=== PATIENT | male | born 1980 | race Two or more races ===

== ENCOUNTER 2024-04-21 01:45 | Emergency (ER) | payer MEDICAID, SELFPAY ==
[2024-04-21 01:50] VITALS: BP 144/75; PULSE 67; RESP 19; TEMP 36.8; O2SAT 97
--- NOTE | 2024-04-21 02:01 | XR_ITS ---
Examination: CT abdomen and pelvis without contrast. Coronal 3-D reconstructions. Sagittal 2-D reconstructions. Date and time of exam:April 21, 2024 at 0220 hrs. Indications: Right upper abdominal pain beginning 2 months ago CTDI: vol (mGy): 5.24 DLP: (mGycm): 308 Technique: Axial images of the abdomen have been obtained, 3 mm slice thickness Intravenous contrast material has not been administered. Low dose protocols were performed. One or more of the following dose reduction techniques were used; automated exposure control, adjustment of the mA and/or KV according to patient size, use of iterative reconstruction technique. Findings: No focal liver or splenic lesions No gallstones No pancreatic or adrenal mass Aorta normal size No renal or ureteral calculi, no hydronephrosis Moderate stool throughout the colon Normal appendix No bowel obstruction No diverticulitis No prostatomegaly Urinary bladder intact Impression: No acute process in the abdomen or pelvis
--- NOTE | 2024-04-21 02:02 | PD.EDRME ---
Rapid Medical Screening Exam RME Arrival date/time: 04/21/24 01:45 43-year-old male no significant past medical history presents emergency department complaining of intermittent right upper quadrant abdominal pain with nausea that is been ongoing for several months. Chief Complaint: Abdominal Pain Time Seen by Provider: 04/21/24 01:47 Vital signs: Vital Signs Temperature 98.2 F 04/21/24 01:50 Pulse Rate 67 04/21/24 01:50 Respiratory Rate 19 04/21/24 01:50 Blood Pressure 144/75 H 04/21/24 01:50 Pulse Oximetry (%) 97 04/21/24 01:50 Oxygen Delivery Method Room Air 04/21/24 01:50 Vital signs reviewed by provider: Yes
[2024-04-21] MEDS: ONDANSETRON ODT 4 MG TABRAP PO (02:14)
[2024-04-21] MEDS: KETOROLAC INJ 60 MG/2 ML VIAL 30 MG IM (02:14)
[2024-04-21 02:26] LABS: Basophils % (Auto) 1 % (0-2.5); Eosinophils # (Auto) 0.2 Thou/mm3 (0.0-0.5); Eosinophils % (Auto) 3 % (0-10); Hematocrit 27.5 % (41.0-53.0); Immature Granulocytes % (Auto) 0 % (0-0); Immature Granulocytes Auto 0.01 Thou/mm3 (0.00-0.00); Lymphocytes # (Auto) 1.4 Thou/mm3 (1.0-4.8); Lymphocytes % (Auto) 23 % (10-50); Mean Corpuscular HGB Conc 30.2 g/dl (31.0-37.0); Mean Corpuscular Hemoglobin 20.3 pg (25.0-35.0); Mean Corpuscular Volume 67 fL (80-100); Monocytes # (Auto) 0.6 Thou/mm3 (0.0-0.8); Monocytes % (Auto) 10 % (0-12); Neutrophils # (Auto) 3.8 Thou/mm3 (1.8-7.7); Neutrophils % (Auto) 63 % (37-80); Nucleated Red Blood Cell % 0 /100 WBC (0); Platelet Count 267 Thou/mm3 (140-440); RDW Standard Deviation 42.4 fL (35.1-43.9); Red Blood Count 4.09 Miln/mm3 (4.50-5.90); White Blood Count 6.1 Thou/mm3 (3.8-10.6)
[2024-04-21 02:34] LABS: Collection Type, Urine Clean Catch; Squamous Epithelial Cell,Urine 0 /hpf (0-5)
[2024-04-21 02:44] LABS: Hemoglobin 8.3 g/dL (13.5-16.0)
[2024-04-21 02:52] LABS: Bacteria,Urine Rare; Bilirubin,Urine Negative (Negative); Blood,Urine Negative (Negative); Clarity,Urine Clear (Clear/Hazy); Color,Urine Lt-Yellow (Lt Yel-Yel); Culture Indicated,Urine Not Indicated; Glucose, Urine Negative (Negative); Ketones,Urine Negative (Negative); Leukocyte Esterase,Urine Negative (Negative); Nitrite,Urine Negative (Negative); Protein,Urine Negative (Neg - Trace); RBC,Urine 2 /hpf (0-3); Specific Gravity,Urine 1.027 (1.001-1.035); Urobilinogen,Urine Negative mg/dL (0.0-1.0); WBC,Urine < 1 /hpf (0-5)
--- NOTE | 2024-04-21 03:07 | PRELIM_ITS ---
CT scan of the abdomen and pelvis without intravenous contrast (axial sections with sagittal and coronal reformats) April 21, 2024 0220 hours Clinical History: Right upper quadrant pain Comparison: None. Findings: The lung bases are clear. The liver, gallbladder, pancreas, spleen, kidneys and adrenals are unremarkable on this noncontrast study. No evidence of bowel obstruction. The appendix is within normal limits. There is no mesenteric or retroperitoneal adenopathy. The urinary bladder is unremarkable. There is no free fluid or free air. The osseous structures are unremarkable. Fecal loading throughout the colon. Impression: Fecal loading. Report Electronically Signed By: Garth Pimentel 04/21/2024 3:06:19 AM [EST]
[2024-04-21 03:08] LABS: Amphetamine/Methamp Scrn,U Negative (Negative); Barbiturate Screen,Urine Negative (Negative); Benzodiazepines Screen,Urine Negative (Negative); Benzoylecgonine Screen, Ur Negative (Negative); Fentanyl Screen,Urine Negative (Negative); Opiate Screen,Urine Negative (Negative); THC Screen,Urine Negative (Negative)
[2024-04-21 03:12] LABS: Alanine Aminotransferase 13 U/L (10-49); Albumin, Serum 4.6 gm/dL (3.5-5.0); Albumin/Globulin Ratio 2.1 (1.2-2.2); Alkaline Phosphatase 69 U/L (46-116); Anion Gap 8 (7-16); Aspartate Amino Transferase 17 U/L (0-34); BUN/Creatinine Ratio 12 Ratio (12-20); Bilirubin,Total 0.5 mg/dL (0.3-1.2); Blood Urea Nitrogen 12 mg/dL (9-23); Calcium 9.4 mg/dL (8.3-10.6); Calcium (Corrected) 9.4 mg/dL (8.5-10.1); Carbon Dioxide 25.1 mMol/L (20.0-31.0); Chloride 107 mMol/L (98-107); Globulin 2.2 gm/dL (2.3-3.5); Glucose 97 mg/dL (74-106); Lipase 37 U/L (12-53); Osmolality,Calculated 279 (275-295); Potassium 4.4 mMol/L (3.4-5.1); Sodium 140 mMol/L (136-145); Total Protein 6.8 gm/dL (5.7-8.2); eGFR > 60 See Note
--- NOTE | 2024-04-21 03:23 | EDNOTE_ITS ---
ED Abdominal Pain RME/HPI General Chief Complaint: Abdominal Pain Stated complaint: ABD PAIN Time seen by provider: 04/21/24 01:47 Arrival date/time: 04/21/24 01:45 43-year-old male no significant past medical history presents emergency department complaining of intermittent right upper quadrant abdominal pain with nausea that is been ongoing for several months. Patient denies any fever, chills, vomiting blood, diarrhea, flank pain, or any other associated symptom. Source: patient Mode of arrival: ambulatory Limitations: no limitations RME / HPI RME / HPI narrative: 04/21/24 01:45 43-year-old male no significant past medical history presents emergency department complaining of intermittent right upper quadrant abdominal pain with nausea that is been ongoing for several months. Related Data Previous Rx's ?Medication ?Instructions ?Recorded docusate sodium 100 mg capsule 100 mg PO BID 3 days #6 caps 04/21/24 Allergies Allergy/AdvReac Type Severity Reaction Status Date / Time Penicillins Allergy Unknown UNKNOWN Verified 04/21/24 01:47 Review of Systems Review of Systems Systems Reviewed: All systems reviewed, normal except as documented Constitutional Constitutional: Reports system reviewed and no additional complaints, except as documented, Denies body ache(s), Denies chills and Denies fever(s) Eyes Eyes: Reports system reviewed and no additional complaints, except as documented and Denies change in vision ENT Ears, Nose, Mouth, and Throat: Reports system reviewed and no additional complaints, except as documented, Denies disequilibrium, Denies dizziness, Denies sore throat and Denies vertigo Cardiovascular Cardiovascular: Reports system reviewed and no additional complaints, except as documented, Denies chest pain and Denies dyspnea Respiratory Respiratory: Reports system reviewed and no additional complaints, except as documented, Denies chest congestion, Denies cough and Denies dyspnea Gastrointestinal Gastrointestinal: Reports system reviewed and no additional complaints, except as documented, Reports abdominal pain, Reports nausea and Denies vomiting Musculoskeletal Musculoskeletal: Reports system reviewed and no additional complaints, except as documented, Denies abnormal gait and Denies arthralgias Integumentary/Breasts Skin/Breast: Reports system reviewed and no additional complaints, except as documented, Denies erythema, Denies rash and Denies wounds Neurologic Neurologic: Reports system reviewed and no additional complaints, except as documented, Denies abnormal gait, Denies disequilibrium, Denies dizziness and Denies vertigo Past Medical History Social History SMOKING STATUS: Never smoker ED Exam General Limitations: Present no limitations General appearance: Present alert and in no apparent distress Head Head exam: Present atraumatic Eye Eye exam: Present normal appearance, PERRL and EOMI ENT ENT exam: Present normal exam, normal oropharynx and mucous membranes moist Neck Neck exam: Present normal inspection, full ROM and trachea midline Chest Chest inspection: Present normal inspection and symmetric chest wall rise Respiratory Respiratory exam: Present normal lung sounds bilaterally Cardiovascular Cardiovascular exam: Present regular rate, normal rhythm and normal heart sounds Abdominal Exam Abdominal exam: Present soft and normal bowel sounds Extremities Exam Extremities exam: Present normal inspection and full ROM Back Exam Back exam: Present normal inspection and full ROM Neurological Exam Neurological exam: Present alert, oriented X3 and CN II-XII intact Psychiatric Psychiatric exam: Present normal affect and normal mood Skin Skin exam: Present warm, dry, intact and normal color Course Quality Measures none Orders Category Date Time Status CT abdomen pelvis wo con Stat Exams 04/21/24 02:01 Taken CBC Stat Lab 04/21/24 02:08 Completed CMP [Comprehensive Metabolic Panel] Stat Lab 04/21/24 02:08 Completed Drug Screen,Urine Stat Lab 04/21/24 02:27 Completed Lipase Stat Lab 04/21/24 02:08 Completed Urinalysis, C/S if Indicated Stat Lab 04/21/24 02:27 Completed Ketorolac Inj [Toradol Inj] Med 04/21/24 02:02 Discontinued 30 mg IM X1 ONE Ondansetron Odt [Zofran Odt] Med 04/21/24 02:02 Discontinued 4 mg PO X1 ONE Vital Signs Vital signs: Vital Signs Temperature 98.2 F 04/21/24 01:50 Pulse Rate 67 04/21/24 01:50 Respiratory Rate 19 04/21/24 01:50 Blood Pressure 144/75 H 04/21/24 01:50 Pulse Oximetry (%) 97 04/21/24 01:50 Oxygen Delivery Method Room Air 04/21/24 01:50 97% room air within normal limits Abdominal Pain MDM MDM Narrative MDM Narrative:: 43-year-old male no significant past medical history presents emergency department complaining of intermittent right upper quadrant abdominal pain with nausea that is been ongoing for several months. Patient denies any fever, chil ls, vomiting blood, diarrhea, flank pain, or any other associated symptom. CBC was unremarkable for any leukocytosis. Hemoglobin 8.3. CMP was unremarkable for any elevated LFTs or gross electrolyte abnormalities. Normal lipase. Urinalysis was unremarkable for any signs of infection. CT abdomen pelvis without was unremarkable other than fecal loading. Patient stable for discharge. Patient data External records reviewed:: None Clinical information provided by:: patient Social determinants that could affect healthcare access:: none Patient has the following chronic illnesses:: None How is presenting disease/condition affected by chronic disease/condition?: no chronic disease Evaluation data The following diagnostics were reviewed and interpreted by me:: lab results and radiology exam(s) Lab and/or radiology exams considered but not ordered:: Ordered Interpretation Summary: Interpreted by me Medications / Prescriptions Medications or Prescriptions considered but not ordered:: Ordered Medication administrations:: Medication Administration History Discontinued Medications Ketorolac Tromethamine (Ketorolac Inj 60 Mg/2 Ml Vial) 30 mg IM X1 ONE Stop: 04/21/24 02:03 Last Admin: 04/21/24 02:14 Dose: 30 mg Documented By: LUIS CARLOS Ondansetron HCl (Ondansetron Odt 4 Mg Tabrap) 4 mg PO X1 ONE; Protocol Stop: 04/21/24 02:03 Last Admin: 04/21/24 02:14 Dose: 4 mg Documented By: LUIS CARLOS Given Consultations Consultation(s) initiated? (list below): No Diagnosis Differential diagnosis abdominal pain: abdominal pain, acute appendicitis, calculus of kidney, constipation, diverticulitis, gastroenteritis, pancreatitis and small bowel obstruction Most likely diagnosis given after review of the tests above:: Abdominal pain Admission Indicated Admission indicated?: not indicated Admission Request Was there a request for admission?: No Disposition Plan Disposition Plan: Discharge Discharge Attestation Discharge Attestation: The patient and all family members were given an opportunity to ask questions and understood the discharge instructions. Discharge instructions specifically effects, indications for sooner follow up or return to the emergency department, and the expected course of current diagnosis. Patient condition: Stable Discharge Plan Plan Patient Disposition: HOME (Self Care) Disposition Comment: Stable Prescriptions/Referrals Prescriptions/Med Rec: New docusate sodium 100 mg capsule 100 mg PO BID 3 Days Qty: 6 0RF Referrals: No Primary/Family,Physician [Primary Care Provider] - In 1 week Problem List Clinical Impression: Abdominal pain Patient/Caregiver Discharge Instructions Discharge Activity: activity as tolerated Education Materials: Abdominal Pain Additional Instructions: Drink plenty of fluids and eat plenty of fiber. Follow-up with primary care provider in 2 to 3 days and request H. pylori testing or referral to GI specialist if symptoms persist. Return to emergency department for any worsening symptoms or as needed. Print Language: Thai Stand Alone Forms: Amanda Award Info., Patient Portal Info Letter PA/ARLEN Supervising Physician PA/[employer] Supervising Physician: Dr. Espinosa
== END 2024-04-21 03:33 | disposition home or self-care (01) ==
PROVIDERS: Emergency Provider Emergency Medicine
DX: R10.11 Right upper quadrant pain (principal)
CPT/HCPCS: 36415; 74176; 80053; 80307; 81001; 83690; 85025; 96372; 99284; J1885; Q0162

== ENCOUNTER 2024-04-21 18:05 | Emergency (ER) | payer MEDICAID, SELFPAY ==
[2024-04-21 18:06] VITALS: BMI 21.5
[2024-04-21 18:35] VITALS: BP 124/64; PULSE 88; RESP 18; TEMP 36.9; O2SAT 99
--- NOTE | 2024-04-21 18:46 | XR_ITS ---
Examination: Testicular sonography complete Technique: Grayscale sonographic images testes with color flow analysis Exam date and time: April 21, 20248 hrs. Indications: Onset right testicular pain today. Findings: Right testis 3.9 cm Epididymis 1.1 cm 4 mm right epididymal cyst No testicular torsion or testicular mass, arterial flow testicle Minimal hydrocele Left testis 3.9 cm Epididymis 1.5 cm Arterial flow testicle Moderate varicocele No testicular mass Minimal hydrocele Impression: No testicular torsion or testicular mass Moderate left varicocele
--- NOTE | 2024-04-21 18:47 | PD.EDRME ---
Rapid Medical Screening Exam RME Arrival date/time: 04/21/24 18:05 43-year-old male no significant past medical history presents emergency department complaining of right testicular pain with nausea that started earlier today. Chief Complaint: Nausea/Vomiting/Diarrhea Time Seen by Provider: 04/21/24 18:12 Vital signs: Vital Signs Temperature 98.5 F 04/21/24 18:35 Pulse Rate 88 04/21/24 18:35 Respiratory Rate 18 04/21/24 18:35 Blood Pressure 124/64 04/21/24 18:35 Pulse Oximetry (%) 99 04/21/24 18:35 Oxygen Delivery Method Room Air 04/21/24 18:35 Vital signs reviewed by provider: Yes
[2024-04-21] MEDS: ONDANSETRON ODT 4 MG TABRAP PO (19:04)
[2024-04-21 19:13] LABS: Collection Type, Urine Clean Catch; Squamous Epithelial Cell,Urine 0 /hpf (0-5)
[2024-04-21] MEDS: ACETAMINOPHEN 500 MG TABLET 1000 MG PO (19:16)
[2024-04-21 19:20] LABS: Bilirubin,Urine Negative (Negative); Blood,Urine Negative (Negative); Clarity,Urine Clear (Clear/Hazy); Color,Urine Lt-Yellow (Lt Yel-Yel); Culture Indicated,Urine Not Indicated; Glucose, Urine Negative (Negative); Ketones,Urine Negative (Negative); Leukocyte Esterase,Urine Negative (Negative); Nitrite,Urine Negative (Negative); Protein,Urine Negative (Neg - Trace); RBC,Urine 1 /hpf (0-3); Specific Gravity,Urine 1.024 (1.001-1.035); Urobilinogen,Urine Negative mg/dL (0.0-1.0); WBC,Urine < 1 /hpf (0-5)
--- NOTE | 2024-04-21 21:40 | EDNOTE_ITS ---
ED Abdominal Pain RME/HPI General Chief Complaint: Nausea/Vomiting/Diarrhea Stated complaint: R UPPER ABD PAIN X1 HOUR; NAUSEOUS Time seen by provider: 04/21/24 18:12 Arrival date/time: 04/21/24 18:05 43-year-old male no significant past medical history presents emergency department complaining of right testicular pain with nausea that started earlier today. Patient denies any fever, chills, vomiting, dysuria, or any other associated symptom. Patient was seen yesterday had blood work and CT scan and was discharged. Source: patient Mode of arrival: ambulatory Limitations: no limitations RME / HPI RME / HPI narrative: 04/21/24 18:05 43-year-old male no significant past medical history presents emergency department complaining of right testicular pain with nausea that started earlier today. Related Data Previous Rx's ?Medication ?Instructions ?Recorded acetaminophen 500 mg capsule 500 mg PO Q6H PRN pain #3 0 caps 04/21/24 docusate sodium 100 mg capsule 100 mg PO BID 3 days #6 caps 04/21/24 ibuprofen 600 mg tablet 600 mg PO Q8H PRN pain #20 t abs 04/21/24 Allergies Allergy/AdvReac Type Severity Reaction Status Date / Time Penicillins Allergy Unknown UNKNOWN Verified 04/21/24 18:08 Review of Systems Review of Systems Systems Reviewed: All systems reviewed, normal except as documented Constitutional Constitutional: Reports system reviewed and no additional complaints, except as documented, Denies body ache(s), Denies chills and Denies fever(s) Eyes Eyes: Reports system reviewed and no additional complaints, except as documented and Denies change in vision ENT Ears, Nose, Mouth, and Throat: Reports system reviewed and no additional complaints, except as documented, Denies disequilibrium, Denies dizziness, Denies sore throat and Denies vertigo Cardiovascular Cardiovascular: Reports system reviewed and no additional complaints, except as documented, Denies chest pain and Denies dyspnea Respiratory Respiratory: Reports system reviewed and no additional complaints, except as documented, Denies chest congestion, Denies cough and Denies dyspnea Gastrointestinal Gastrointestinal: Reports system reviewed and no additional complaints, except as documented, Denies abdominal pain, Denies nausea and Denies vomiting Genitourinary Genitourinary: Reports testicular pain Musculoskeletal Musculoskeletal: Reports system reviewed and no additional complaints, except as documented, Denies abnormal gait and Denies arthralgias Integumentary/Breasts Skin/Breast: Reports system reviewed and no additional complaints, except as documented, Denies erythema, Denies rash and Denies wounds Neurologic Neurologic: Reports system reviewed and no additional complaints, except as documented, Denies abnormal gait, Denies disequilibrium, Denies dizziness and Denies vertigo Past Medical History Social History SMOKING STATUS: Never smoker ED Exam General Limitations: Present no limitations General appearance: Present alert and in no apparent distress Head Head exam: Present atraumatic Eye Eye exam: Present normal appearance, PERRL and EOMI ENT ENT exam: Present normal exam, normal oropharynx and mucous membranes moist Neck Neck exam: Present normal inspection, full ROM and trachea midline Chest Chest inspection: Present normal inspection and symmetric chest wall rise Respiratory Respiratory exam: Present normal lung sounds bilaterally Cardiovascular Cardiovascular exam: Present regular rate, normal rhythm and normal heart sounds Abdominal Exam Abdominal exam: Present soft and normal bowel sounds Expanded Exam exam: Absent penile swelling, lesions, erythema or ulcerations Scrotal exam: right: testicular tenderness Extremities Exam Extremities exam: Present normal inspection and full ROM Back Exam Back exam: Present normal inspection and full ROM Neurological Exam Neurological exam: Present alert, oriented X3 and CN II-XII intact Psychiatric Psychiatric exam: Present normal affect and normal mood Skin Skin exam: Present warm, dry, intact and normal color Course Quality Measures none Orders Category Date Time Status US testicular Stat Exams 04/21/24 18:46 Completed Urinalysis, C/S if Indicated Stat Lab 04/21/24 19:05 Completed Acetaminophen Tab [Tylenol ES Tab] Med 04/21/24 19:11 Discontinued 1,000 mg PO X1 ONE Ketorolac Inj [Toradol Inj] Med 04/21/24 18:46 Discontinued 30 mg IM X1 ONE Ondansetron Odt [Zofran Odt] Med 04/21/24 18:46 Discontinued 4 mg PO X1 ONE Vital Signs Vital signs: Vital Signs Temperature 98.5 F 04/21/24 18:35 Pulse Rate 88 04/21/24 18:35 Respiratory Rate 18 04/21/24 18:35 Blood Pressure 124/64 04/21/24 18:35 Pulse Oximetry (%) 99 04/21/24 18:35 Oxygen Delivery Method Room Air 04/21/24 18:35 Abdominal Pain MDM MDM Narrative MDM Narrative:: 43-year-old male no significant past medical history presents emergency department complaining of right testicular pain with nausea that started earlier today. Patient denies any fever, chills, vomiting, dysuria, or any other associated symptom. Patient was seen yesterday had blood work and CT scan and was discharged. Urinalysis was unremarkable. Testicular ultrasound findings left moderate varicocele. Testicular exam no obvious signs of infection lumps or masses. Patient stable for discharge. Patient data External records reviewed:: [facility] previous records Clinical information provided by:: patient Social determinants that could affect healthcare access:: none Patient has the following chronic illnesses:: None How is presenting disease/condition affected by chronic disease/condition?: no chronic disease Evaluation data The following diagnostics were reviewed and interpreted by me:: lab results and radiology exam(s) Lab and/or radiology exams considered but not ordered:: Ordered Interpretation Summary: Interpreted by me Medications / Prescriptions Medications or Prescriptions considered but not ordered:: Ordered Medication administrations:: Medication Administration History Discontinued Medications Acetaminophen (Acetaminophen 500 Mg Tablet) 1,000 mg PO X1 ONE Stop: 04/21/24 19:12 Last Admin: 04/21/24 19:16 Dose: 1,000 mg Documented By: LUIS CARLOS Ketorolac Tromethamine (Ketorolac Inj 60 Mg/2 Ml Vial) 30 mg IM X1 ONE Stop: 04/21/24 18:47 Last Admin: 04/21/24 19:09 Dose: Not Given Documented By: LUIS CARLOS Non-Admin Reason: Patient Refused Ondansetron HCl (Ondansetron Odt 4 Mg Tabrap) 4 mg PO X1 ONE; Protocol Stop: 04/21/24 18:47 Last Admin: 04/21/24 19:04 Dose: 4 mg Documented By: LUIS CARLOS Given Consultations Consultation(s) initiated? (list below): No Diagnosis Differential diagnosis abdominal pain: abdominal pain, acute appendicitis, calculus of kidney, constipation, diverticulitis, endometriosis, gastroente ritis, pancreatitis and small bowel obstruction Most likely diagnosis given after review of the tests above:: Left varicocele Admission Indicated Admission indicated?: not indicated Admission Request Was there a request for admission?: No Disposition Plan Disposition Plan: Discharge Discharge Attestation Discharge Attestation: The patient and all family members were given an opportunity to ask questions and understood the discharge instructions. Discharge instructions specifically effects, indications for sooner follow up or return to the emergency department, and the expected course of current diagnosis. Patient condition: Stable Discharge Plan Plan Patient Disposition: HOME (Self Care) Disposition Comment: Stable Prescriptions/Referrals Prescriptions/Med Rec: New ibuprofen 600 mg tablet 600 mg PO Q8H PRN (Reason: pain) Qty: 20 0RF acetaminophen 500 mg capsule 500 mg PO Q6H PRN (Reason: pain) Qty: 30 0RF No Action docusate sodium 100 mg capsule 100 mg PO BID 3 Days Qty: 6 0RF Referrals: No Primary/Family,Physician [Primary Care Provider] - In 1 week Problem List Clinical Impression: Left varicocele Patient/Caregiver Discharge Instructions Education Materials: Treating Varicocele, What Is a Varicocele, ED Varicocele Additional Instructions: Take Tylenol or ibuprofen as needed for pain. Follow-up with primary care provider in 2 to 3 days and request referral to urologist if symptoms persist. Return to emergency department for any worsening symptoms or as needed. Print Language: [place]ese Stand Alone Forms: Amanda Award Info., Patient Portal Info Letter FOREIGN/ARLEN Supervising Physician PA/ARLEN Supervising Physician: Dr. Espinosa
== END 2024-04-21 22:03 | disposition home or self-care (01) ==
PROVIDERS: Emergency Provider Emergency Medicine
DX: I86.1 Scrotal varices (principal)
CPT/HCPCS: 76870; 80307; 81001; 99284; J1885; Q0162; A9270

== ENCOUNTER 2024-05-15 08:04 | Emergency (ER) | payer MEDICAID, SELFPAY ==
[2024-05-15 08:12] VITALS: BP 120/76; PULSE 86; RESP 16; TEMP 36.7; O2SAT 100; BMI 23.6
--- NOTE | 2024-05-15 08:17 | XR_ITS ---
EXAMINATION: US scrotum HISTORY: Right lower quadrant and tubes. COMPARISON: 04/21/2024, scrotal ultrasound and CT abdomen pelvis. FINDINGS: Right testicle size: 5.1 x 2.1 x 3.2 cm. Right testicle parenchyma: Within normal limits. No mass. Right testicle location: Normally positioned within the scrotum. Right epididymis: Within normal limits. Other findings right: Similar to prior ultrasound, there is a small amount of hypoechoic fluid with internal echogenicities primarily around the inferior aspect of the testicle. No varicocele. Left testicle size: 5.1 x 1.9 x 2.8 cm. Left testicle parenchyma: Within normal limits. No mass. Left testicle location: Normally positioned within the scrotum. Left epididymis: Within normal limits. Other findings left: No hydrocele. Small varicocele again seen. Doppler: Arterial and venous color Doppler flow and spectral waveforms within both testes are within normal limits. IMPRESSION: 1. No sonographic findings for testicular torsion. 2. Similar, small complicated fluid collection about the inferior aspect of the right testicle. Differential includes hydrocele, pyocele, hematocele. 3. Similar small left varicocele.
--- NOTE | 2024-05-15 08:18 | EDRME_ITS ---
Rapid Medical Screening Exam [facility] Arrival date/time: 05/15/24 08:04 CC: Scrotal pain that radiates up into the left upper quadrant HPI ongoing for the past several months intermittent in nature worse in the last 12 hours denies nausea vomiting painful urination bloody urination headache shortness of breath difficulty breathing or fever. Chief Complaint: Abdominal Pain Vital signs: Vital Signs Temperature 98.1 F 05/15/24 08:12 Pulse Rate 86 05/15/24 08:12 Respiratory Rate 16 05/15/24 08:12 Blood Pressure 120/76 05/15/24 08:12 Pulse Oximetry (%) 100 05/15/24 08:12 Oxygen Delivery Method Room Air 05/15/24 08:12
[2024-05-15 08:50] LABS: Collection Type, Urine Clean Catch; Squamous Epithelial Cell,Urine 0 /hpf (0-5)
[2024-05-15 09:06] LABS: Basophils # (Auto) 0.1 Thou/mm3 (0.0-0.2); Basophils % (Auto) 1 % (0-2.5); Eosinophils # (Auto) 0.3 Thou/mm3 (0.0-0.5); Eosinophils % (Auto) 4 % (0-10); Hematocrit 30.2 % (41.0-53.0); Immature Granulocytes % (Auto) 0 % (0-0); Immature Granulocytes Auto 0.01 Thou/mm3 (0.00-0.00); Lymphocytes # (Auto) 1.7 Thou/mm3 (1.0-4.8); Lymphocytes % (Auto) 22 % (10-50); Mean Corpuscular HGB Conc 29.1 g/dl (31.0-37.0); Mean Corpuscular Hemoglobin 19.5 pg (25.0-35.0); Mean Corpuscular Volume 67 fL (80-100); Monocytes # (Auto) 0.7 Thou/mm3 (0.0-0.8); Monocytes % (Auto) 9 % (0-12); Neutrophils # (Auto) 4.8 Thou/mm3 (1.8-7.7); Neutrophils % (Auto) 64 % (37-80); Nucleated Red Blood Cell % 0 /100 WBC (0); Platelet Count 332 Thou/mm3 (140-440); RDW Standard Deviation 43.8 fL (35.1-43.9); Red Blood Count 4.52 Miln/mm3 (4.50-5.90); White Blood Count 7.5 Thou/mm3 (3.8-10.6)
[2024-05-15 09:07] LABS: Hemoglobin 8.8 g/dL (13.5-16.0)
[2024-05-15 09:08] LABS: Bilirubin,Urine Negative (Negative); Blood,Urine Negative (Negative); Clarity,Urine Clear (Clear/Hazy); Color,Urine Yellow (Lt Yel-Yel); Glucose, Urine Negative (Negative); Ketones,Urine Negative (Negative); Leukocyte Esterase,Urine Negative (Negative); Nitrite,Urine Negative (Negative); Protein,Urine Trace (Neg - Trace); RBC,Urine 5 /hpf (0-3); Specific Gravity,Urine 1.029 (1.001-1.035); Urobilinogen,Urine Negative mg/dL (0.0-1.0); WBC,Urine 1 /hpf (0-5)
[2024-05-15 09:10] LABS: Alanine Aminotransferase 16 U/L (10-49); Albumin, Serum 4.4 gm/dL (3.5-5.0); Albumin/Globulin Ratio 1.8 (1.2-2.2); Alkaline Phosphatase 77 U/L (46-116); Anion Gap 8 (7-16); Aspartate Amino Transferase 21 U/L (0-34); BUN/Creatinine Ratio 15 Ratio (12-20); Bilirubin,Total 0.5 mg/dL (0.3-1.2); Blood Urea Nitrogen 17 mg/dL (9-23); Calcium 9.6 mg/dL (8.3-10.6); Calcium (Corrected) 9.6 mg/dL (8.5-10.1); Carbon Dioxide 25.7 mMol/L (20.0-31.0); Chloride 110 mMol/L (98-107); Creatinine (Component) 1.1 mg/dL (0.6-1.3); Estimated Creatinine Clearance 88.4 mL/min (>60); Globulin 2.4 gm/dL (2.3-3.5); Glucose 73 mg/dL (74-106); Lipase 50 U/L (12-53); Osmolality,Calculated 287 (275-295); Potassium 3.8 mMol/L (3.4-5.1); Sodium 144 mMol/L (136-145); Total Protein 6.8 gm/dL (5.7-8.2); eGFR > 60 See Note
[2024-05-15 11:02] LABS: Path Review Blood Smear Sent to Pathologist
--- NOTE | 2024-05-15 11:35 | PD.EDABDPN ---
ED Abdominal Pain RME/HPI General Chief Complaint: Abdominal Pain Stated complaint: STOMACH PAINS Time seen by provider: 05/15/24 11:28 Arrival date/time: 05/15/24 08:04 RME / HPI RME / HPI narrative: 43-year-old male patient with no significant medical history, came in for evaluation regarding right sided abdominal pain. Onset of symptoms for several months as on and off right-sided abdominal pain, radiating to the right testicle. Described as dull ache severity mild. Patient denies any vomiting fever. Denies any dysuria frequency. Denies any swelling to the testicle. Denies any redness to the testicle. No medication has been prior to arrival. Related Data Previous Rx's ?Medication ?Instructions ?Recorded acetaminophen 500 mg capsule 500 mg PO Q6H PRN pain #30 caps 04/21/24 ibuprofen 600 mg tablet 600 mg PO Q8H PRN pain #20 tabs 04/21/24 ibuprofen 800 mg tablet 800 mg PO TID PRN pain #30 tabs 05/15/24 Allergies Allergy/AdvReac Type Severity Reaction Status Date / Time Penicillins Allergy Unknown UNKNOWN Verified 05/15/24 08:07 Review of Systems Review of Systems Narrative Review of Systems: Review of system reviewed and within normal limits except mentioned in HPI ED Exam Narrative Physical exam: VITAL SIGNS: Reviewed. GENERAL APPEARANCE: Alert and interactive, follows commands, no acute distress, HEAD AND FACE: Non-traumatic. ENT: PERRL, pink conjunctivitis, eyelid no trauma, Mucous membrane moist. NECK: Supple, nontender, no nuchal rigidity. CHEST: No tenderness, no crepitus, no paradoxical movement, no retractions. LUNGS: Clear, well ventilated, symmetric, no rales, no wheezing, no ronchi, no stridor, good breath sounds bilaterally. HEART: Regular rate, regular rhythm, no murmur, no gallops. ABDOMEN: Soft, positive bowel sounds, nondistended, no guarding, nontender, no rebound, no masses, RECTAL: Deferred. GENITAL: No testicular tenderness no swelling noted NEUROLOGICAL: Gross motor function intact sensory function intact, Appropriate for age. MUSCULOSKELETAL: low back nontender, full range of motion. EXTREMITIES: Nontender, full range of motion. SKIN: Color pink, dry, no rash, no lacerations, no abrasions, no contusions. LYMPHATICS: Deferred. Course Quality Measures none Orders Category Date Time Status US scrotum Stat Exams 05/15/24 08:17 Completed CBC Stat Lab 05/15/24 08:30 Completed CMP [Comprehensive Metabolic Panel] Stat Lab 05/15/24 08:30 Completed Lipase Stat Lab 05/15/24 08:30 [address]pleted Path Review Blood Smear Stat Lab 05/15/24 08:30 Completed Urinalysis Stat Lab 05/15/24 08:30 Completed Vital Signs Vital signs: Vital Signs Temperature 98.1 F 05/15/24 08:12 Pulse Rate 86 05/15/24 08:12 Respiratory Rate 16 05/15/24 08:12 Blood Pressure 120/76 05/15/24 08:12 Pulse Oximetry (%) 100 05/15/24 08:12 Oxygen Delivery Method Room Air 05/15/24 08:12 Abdominal Pain MDM MDM Narrative MDM Narrative:: 43-year-old male patient with no significant medical history, came in for evaluation regarding right sided abdominal pain. Onset of symptoms for several months as on and off right-sided abdominal pain, radiating to the right testicle. Described as dull ache severity mild. Patient denies any vomiting fever. Denies any dysuria frequency. Denies any swelling to the testicle. Denies any redness to the testicle. No medication has been prior to arrival. Patient's workup today all came back unremarkable. Ultrasound of the scrotum showed 1. No sonographic findings for testicular torsion. 2. Similar, small complicated fluid collection about the inferior aspect of the right testicle. Differential includes hydrocele, pyocele, hematocele. 3. Similar small left varicocele. Results discussed with the patient. Patient was advised to follow-up with PCP and for referral to urologist. Prior to discharge patient told me that his pain is totally gone. Patient data External records reviewed:: None Clinical information provided by:: patient Social determinants that could affect healthcare access:: none Patient has the following chronic illnesses:: None How is presenting disease/condition affected by chronic disease/condition?: no chronic disease Evaluation data The following diagnostics were reviewed and interpreted by me:: lab results and radiology exam(s) Lab and/or radiology exams considered but not ordered:: None Interpretation Summary: None Medications / Prescriptions Medications or Prescriptions considered but not ordered:: None Medication administrations:: None Consultations Consultation(s) initiated? (list below): No Diagnosis Differential diagnosis abdominal pain: abdominal pain and constipation Most likely diagnosis given after review of the tests above:: Testicular pain, hydrocele, abdominal pain Admission Indicated Admission indicated?: not indicated Admission Request Was there a request for admission?: No Disposition Plan Disposition Plan: Discharge Discharge Attestation Discharge Attestation: The patient was given an opportunity to ask questions and understood the discharge instructions. Discharge instructions specifically effects, indications for sooner follow up or return to the emergency department, and the expected course of current diagnosis. Patient condition: Stable Discharge Plan Plan Patient Disposition: HOME (Self Care) Disposition Comment: stable Prescriptions/Referrals Prescriptions/Med Rec: New ibuprofen 800 mg tablet 800 mg PO TID PRN (Reason: pain) Qty: 30 0RF No Action ibuprofen 600 mg tablet 600 mg PO Q8H PRN (Reason: pain) Qty: 20 0RF acetaminophen 500 mg capsule 500 mg PO Q6H PRN (Reason: pain) Qty: 30 0RF Referrals: Marquise Walker MD [Primary Care Provider] - In 1 week Problem List Clinical Impression: Right hydrocele, Abdominal pain Patient/Caregiver Discharge Instructions Discharge Activity: activity as tolerated Education Materials: ED Hydrocele, Type Not Specified Additional Instructions: Thank you for the opportunity for serving you today. You are stable for discharged . You are advised to: Follow-up with your PCP in 1 to 2 days as for referral to urologist Return to ED for worsening of symptoms Increase oral fluids Take medication as prescribed Print Language: Nicaraguan Stand Alone Forms: Amanda Award Info., Patient Portal Info Letter FOREIGN/ARLEN Supervising Physician AGUSTIN Supervising Physician: MD Ricardo
== END 2024-05-15 12:13 | disposition home or self-care (01) ==
PROVIDERS: Registered Nurse General Practice; Emergency Provider Emergency Medicine; PCP Family Medicine
DX: N43.3 Hydrocele, unspecified (principal)
CPT/HCPCS: 36415; 76870; 80053; 81001; 83690; 85025; 99284

== ENCOUNTER 2024-12-03 14:38 | Emergency (ER) | payer MEDICAID, SELFPAY ==
[2024-12-03 15:00] VITALS: BP 115/77; PULSE 69; RESP 18; TEMP 37.1; O2SAT 99
[2024-12-03 15:24] LABS: Basophils # (Auto) 0.0 Thou/mm3 (0.0-0.2); Basophils % (Auto) 1 % (0-2.5); Eosinophils # (Auto) 0.2 Thou/mm3 (0.0-0.5); Eosinophils % (Auto) 3 % (0-10); Hematocrit 36.0 % (41.0-53.0); Hemoglobin 11.3 g/dL (13.5-16.0); Immature Granulocytes Auto 0.01 Thou/mm3 (0.00-0.00); Lymphocytes # (Auto) 0.8 Thou/mm3 (1.0-4.8); Lymphocytes % (Auto) 14 % (10-50); Mean Corpuscular HGB Conc 31.4 g/dl (31.0-37.0); Mean Corpuscular Hemoglobin 23.8 pg (25.0-35.0); Mean Corpuscular Volume 76 fL (80-100); Monocytes # (Auto) 0.7 Thou/mm3 (0.0-0.8); Monocytes % (Auto) 12 % (0-12); Neutrophils # (Auto) 4.1 Thou/mm3 (1.8-7.7); Neutrophils % (Auto) 70 % (37-80); Nucleated Red Blood Cell # 0.00 Thou/mm3 (0.00-0.00); Nucleated Red Blood Cell % 0 /100 WBC (0); Platelet Count 245 Thou/mm3 (140-440); RDW Standard Deviation 44.0 fL (35.1-43.9); Red Blood Count 4.74 Miln/mm3 (4.50-5.90); White Blood Count 5.9 Thou/mm3 (3.8-10.6)
[2024-12-03 15:52] LABS: Alanine Aminotransferase < 7 U/L (10-49); Albumin, Serum 4.2 gm/dL (3.5-5.0); Albumin/Globulin Ratio 2.2 (1.2-2.2); Alkaline Phosphatase 80 U/L (46-116); Anion Gap 9 (7-16); Aspartate Amino Transferase 11 U/L (0-34); BUN/Creatinine Ratio 5 Ratio (12-20); Bilirubin,Total 0.6 mg/dL (0.3-1.2); Blood Urea Nitrogen < 5 mg/dL (9-23); Calcium 8.8 mg/dL (8.3-10.6); Calcium (Corrected) 8.8 mg/dL (8.5-10.1); Carbon Dioxide 26.7 mMol/L (20.0-31.0); Chloride 106 mMol/L (98-107); Creatinine (Component) 1.0 mg/dL (0.6-1.3); Estimated Creatinine Clearance 91.5 mL/min (>60); Globulin 1.9 gm/dL (2.3-3.5); Glucose 103 mg/dL (74-106); Lipase 24 U/L (12-53); Osmolality,Calculated 280 (275-295); Potassium 3.6 mMol/L (3.4-5.1); Sodium 142 mMol/L (136-145); Total Protein 6.1 gm/dL (5.7-8.2); eGFR > 60 See Note
--- NOTE | 2024-12-03 16:40 | PD.EDRME ---
Rapid Medical Screening Exam RME Arrival date/time: 12/03/24 14:38 44-year-old male presents emergency room today complains of abdominal pain patient reports no fever nausea vomiting patient for symptom onset today Chief Complaint: Abdominal Pain Time Seen by Provider: 12/03/24 14:55 Vital signs: Vital Signs Temperature 98.8 F 12/03/24 15:00 Pulse Rate 69 12/03/24 15:00 Respiratory Rate 18 12/03/24 15:00 Blood Pressure 115/77 12/03/24 15:00 Pulse Oximetry (%) 99 12/03/24 15:00 Oxygen Delivery Method Room Air 12/03/24 15:00
--- NOTE | 2024-12-03 17:17 | PC.NURSE ---
PT NOT FOUND IN OR OUTSIDE OF LOBBY X3. PT ELOPED.
== END 2024-12-03 17:18 | disposition left against medical advice (07) ==
LOC: SERX 15:20
PROVIDERS: Nurse Practitioner Primary Care; Emergency Provider Family Medicine
DX: R10.9 Unspecified abdominal pain (principal); Z53.29 Procedure and treatment not carried out because of patient's decision for other reasons
CPT/HCPCS: 36415; 80053; 80307; 81001; 83690; 85025; 99283